=== PATIENT | female | born 1985 | race Caucasian/White ===

== ENCOUNTER → 2016-12-21 | Outpatient (CLI) | payer OTHER ==
[~2016-12-21] MED LIST: /AMLO25TA PO; /HCTZ25TA PO; /ONDA4TA PO; ACET50TA PO; CLIN1PAD TOP; CLIN1SOL TOP; DRIS1CAP PO; HUMA100I SC; INSULANT SC; IRON100T PO; IRON325T3 PO; LASI40TA PO; METF500T PO; OMEG12006 PO; PRED20TA PO; PRIN10TA PO; TOPR25TA PO; VITA500C24 PO; [UNRECOGNIZED DRUG - OTHER] PO
--- NOTE | 2016-12-24 13:20 | SLEEPCENT ---
DATE OF PROCEDURE: 12/21/2016 REFERRING PROVIDER: Fabien Lucero MD INTERPRETATION: Nocturnal polysomnography was performed for the determination of pressure therapy in this person with severe obstructive sleep apnea with an apnea-hypopnea index of 31.7. A total of 7 hours and 11 minutes of data was reviewed for the entire titration with 356.5 minutes of sleep identified. Sleep latency was 22 minutes. Rapid eye movement (REM) latency was 98 minutes. Sleep efficiency was 85.2%. EKG showed normal sinus rhythm with an average heart rate of 93 beats per minute. Speeding and slowing was noted surrounding some respiratory events. No epileptiform discharge observed. The patient had been fit with a ResMed Quattro full face mask of extra small size, 4 cm of water pressure was applied to the circuit, and the lights were dimmed. CPAP begun at 4 cm was eventually taken to a high of 9 cm, which appeared to be optimal. On this pressure, her AHI was 0 as was her BEARD. Oxygen saturations were in the 90th percentile. No significant periodic limb movements. Supine REM sleep was seen on this pressure with a reasonably good waveform. IMPRESSION: 1. Obstructive sleep apnea (CAREN) (G47.33), severe, reasonably palliated on CPAP at 9 cm of water pressure. RECOMMENDATIONS: Recommend continuation of CPAP therapy at the above pressure via an extra small ResMed Quattro full face mask or mask of her preference. Clinical correlation will be necessary to ensure eradication of symptoms.
== END ==
LOC: M SLEEP 19:45
PROVIDERS: ATTEND Internal Medicine Pulmonary Disease
DX: G47.33 Obstructive sleep apnea (adult) (pediatric) (principal)

== ENCOUNTER 2019-01-02 04:53 | Emergency (ER) | payer OTHER ==
[~2019-01-02] VITALS: Ht 157.5 cm; Wt 106.8 kg
[2019-01-02] MEDS ORDERED: AUGM875T28 PO (07:22)
[2019-01-02 07:26] VITALS: BP 172/95
[2019-01-02] MEDS ORDERED: LISI-538 PO (08:09)
[2019-01-02] MEDS ORDERED: METF10004 PO (08:09)
[2019-01-02] MEDS ORDERED: HYDR12.55 PO (08:09)
[2019-01-02] MEDS ORDERED: FLUO20CA8 PO (08:09)
[2019-01-02] MEDS ORDERED: TOPR50TA23 PO (08:09)
== END 2019-01-02 08:18 | disposition home or self-care (01) ==
LOC: M ED 04:53
DX: K08.89 Other specified disorders of teeth and supporting structures (principal); I10 Essential (primary) hypertension; E11.9 Type 2 diabetes mellitus without complications; Z79.84 Long term (current) use of oral hypoglycemic drugs; Z79.899 Other long term (current) drug therapy

== ENCOUNTER → 2019-07-24 | Outpatient (CLI) | payer OTHER ==
[~2019-07-24] MED LIST changes: -/AMLO25TA PO; -/HCTZ25TA PO; -/ONDA4TA PO; -ACET50TA PO; +AUGM875T28 PO; +FLUO20CA20 PO; +HYDR-3644 PO; +HYDR12.55 PO; +LISI-538 PO; +MAPA500T17 PO; +METF10004 PO; +METO-1 PO; +NORV2TAB PO; +ONDA-1 PO; +SULF1TAB72 PO; -TOPR25TA PO; +TOPR50TA PO; -[UNRECOGNIZED DRUG - OTHER] PO
[2019-07-24 13:38] LABS: CHOLESTEROL LEVEL 187 MG/DL (<200); CHOLESTEROL RISK RATIO 5.843 (<5); HDL CHOLESTEROL 32 MG/DL (>40); NON-HDL-C 155 MG/DL; RHEUMATOID FACTOR QUANT < 10.0 IU/ML (<15.0); TRIGLYCERIDES LEVEL 421 MG/DL (<150)
[2019-07-24 13:50] LABS: FOLATE 7.9 NG/ML (>5.4); VITAMIN B12 LEVEL 291 PG/ML (247-911)
[2019-07-25 15:01] LABS: SSA SJOGRENS A <0.2 AI (0.0-0.9); SSB SJOGRENS B <0.2 AI (0.0-0.9)
[2019-07-30 00:06] LABS: ANTI THROMBIN 3 ANTIGEN IMMUNO 155 % (72-124); ANTI THROMBIN 3 FUNCT ACTIVITY 150 % (75-135)
[2019-07-31 08:06] LABS: ANCA-ATYPICAL <1:20 titer (Neg:<1:20); ANGIOTENSIN 1 CONVERTING ENZYM < 15 U/L (14-82); ANTI DS-DNA AB <1:10 titer (.); ANTINUCLEAR ANTIBODIES DIRECT Negative (Negative); CARDIOLIPIN IGA ANTIBODY <9 APL U/mL (0-11); CARDIOLIPIN IGG ANTIBODY 96 GPL U/mL (0-14); CARDIOLIPIN IGM ANTIBODY 13 MPL U/mL (0-12); CYTOPLASMIC NEUTROP AB ANCA-C <1:20 titer (Neg:<1:20); PERINUCLEAR AB ANCA-P <1:20 titer (Neg:<1:20); PROTEIN C FUNCTIONAL ACTIVITY > 199 % (73-180); PROTEIN S FUNCTIONAL ACTIVITY 108 % (63-140); VITAMIN B1 LEVEL WHOLE BLOOD 101.5 nmol/L (66.5-200.0); VITAMIN B6,PYRIDOXAL PHOSPHATE 2.6 ug/L (2.0-32.8); VITAMIN E(ALPHA TOCOPHEROL) 17.2 mg/L (5.9-19.4); VITAMIN E(GAMMA TOCOPHEROL) 3.5 mg/L (0.7-4.9)
[2019-08-07 11:16] LABS: DRVV SCREEN 62.7 SEC
[2019-08-07 11:20] LABS: PTT LUPUS TYPE ANTICOAG SCREEN 1.5 (0-1.2)
[2019-08-07 11:28] LABS: DRVV CONFIRM 36.5 SEC
[2019-08-07 11:30] LABS: NORMALIZED RATIO 1.5 (0.00-1.20)
[2019-08-10 00:07] LABS: HEXAGONAL PHASE PHOSPHOLIPID 5 sec (0-11)
== END ==
LOC: M WUC 08:30
PROVIDERS: ATTEND Psychiatry & Neurology Neurology
DX: G45.9 Transient cerebral ischemic attack, unspecified (principal)

== ENCOUNTER → 2020-01-12 | Outpatient (REF) | payer OTHER | LOC: M SFHCRHEU 11:52 | PROVIDERS: ATTEND Internal Medicine | DX: R76.0 Raised antibody titer (principal); R70.0 Elevated erythrocyte sedimentation rate ==

== ENCOUNTER → 2020-01-13 | Outpatient (CLI) | payer OTHER ==
[2020-01-13 09:33] LABS: BASO # 0.1 10^3/uL (0.0-0.2); BASO % 1.2 % (0.0-1.0); EOS # 0.3 10^3/uL (0.0-0.5); EOS % 2.7 % (0.0-3.0); HEMATOCRIT 43.1 % (36.0-47.0); LYMPH # 1.9 10^3/uL (1.5-5.0); LYMPH % 19.4 % (24.0-44.0); MEAN CORPUSCULAR HGB CONC 32.5 g/dl (32.0-36.5); MEAN CORPUSCULAR VOLUME 92.3 fl (80.0-96.0); MONO # 0.7 10^3/uL (0.0-0.8); MONO % 7.1 % (0.0-5.0); NEUTROPHILS # 6.8 10^3/uL (1.5-8.5); NEUTROPHILS % 68.1 % (36.0-66.0); PLATELET COUNT, AUTOMATED 327 10^3/uL (150-450); RED BLOOD COUNT 4.67 10^6/uL (4.00-5.40)
[2020-01-13 10:09] LABS: ALBUMIN 4.5 GM/DL (3.2-5.2); ALT/SGPT 27 U/L (12-78); BILIRUBIN,TOTAL 0.4 MG/DL (0.2-1.0); BLOOD UREA NITROGEN 23 MG/DL (7-18); C REACTIVE PROTEIN QUANTITATIV < 0.30 MG/DL (0.00-0.30); CALCIUM LEVEL 9.8 MG/DL (8.5-10.1); CARBON DIOXIDE LEVEL 27 MEQ/L (21-32); CHLORIDE LEVEL 100 MEQ/L (98-107); COMPLEMENT C3 134 MG/DL (90-180); COMPLEMENT C4 27 MG/DL (10-40); CREATININE FOR GFR 1.07 MG/DL (0.55-1.30); GLOMERULAR FILTRATION RATE > 60.0 (>60); GLUCOSE, FASTING 137 MG/DL (70-100); POTASSIUM SERUM 3.8 MEQ/L (3.5-5.1); SODIUM LEVEL 136 MEQ/L (136-145); TOTAL PROTEIN 8.1 GM/DL (6.4-8.2)
[2020-01-13 10:11] LABS: ERYTHROCYTE SEDIMENTATION RATE 32 mm/hr (0-20)
[2020-01-18 14:10] LABS: ANA (HEP2) Positive (.); ANTI DS-DNA AB Negative (Negative); BETA-2 GLYCOPROTEIN I ABY IGA <9 (0-25); BETA-2 GLYCOPROTEIN I ABY IGG 60 (0-20); BETA-2 GLYCOPROTEIN I ABY IGM <9 (0-32); CARDIOLIPIN IGA ANTIBODY <9 APL U/mL (0-11); CARDIOLIPIN IGG ANTIBODY 72 GPL U/mL (0-14); CARDIOLIPIN IGM ANTIBODY 9 MPL U/mL (0-12); RNP ANTIBODY < 0.2 AI (0.0-0.9); SMITHS ANTIBODY < 0.2 AI (0.0-0.9); SSA SJOGRENS A <0.2 AI (0.0-0.9); SSB SJOGRENS B <0.2 AI (0.0-0.9)
[2020-01-19 10:48] LABS: DRVV SCREEN 60.5 SEC
[2020-01-19 11:00] LABS: PTT LUPUS TYPE ANTICOAG SCREEN 1.5 (0-1.2)
[2020-01-19 11:07] LABS: DRVV CONFIRM 38.1 SEC
[2020-01-19 11:08] LABS: NORMALIZED RATIO 1.5 (0.00-1.20)
[2020-01-21 00:06] LABS: HEXAGONAL PHASE PHOSPHOLIPID 0 sec (0-11)
== END ==
LOC: M WUC 08:10
PROVIDERS: ATTEND Internal Medicine
DX: R70.0 Elevated erythrocyte sedimentation rate (principal); R76.0 Raised antibody titer